=== PATIENT | female | born 1945 | race Two or more races ===

== ENCOUNTER 2020-08-14 07:00 | Inpatient (IN) | payer OTHER ==
[~2020-08-14] VITALS: Ht 162.6 cm; Wt 68.9 kg
[2020-08-14] MEDS ORDERED: SINGULAIR10 MG PO (09:09)
[2020-08-14] MEDS ORDERED: OMEPRAZO PO (09:11)
[2020-08-14] MEDS ORDERED: ADVIL200 M1 PO (09:13)
[2020-08-20] MEDS ORDERED: GABAPENTIN100 M2 (11:38)
[2020-08-20] MEDS ORDERED: OMEPRAZOLE MAGN20 MG (11:38)
[2020-08-20] MEDS ORDERED: CELECOXIB200 MG (11:38)
[2020-08-20] MEDS ORDERED: LEVOCETIRIZINE D5 MG (11:38)
[2020-08-20] MEDS ORDERED: OMEPRAZOLE20 MG (11:38)
[2020-08-20] MEDS ORDERED: BREO ELLIPTA 21 EACH (11:38)
[2020-08-20] MEDS ORDERED: LEVALBUTER1.25 MG/3 (11:39)
[2020-08-20] MEDS ORDERED: DYMISTA NASAL S23 GM (11:39)
[2020-08-21] MEDS ORDERED: Tylenol #3 PO (09:12)
== END 2020-08-21 11:08 | disposition home or self-care (01) | DRG 743 ==
LOC: O/R 08-20 06:00 → OB/GYN 08-20 06:00
PROVIDERS: ADMIT Obstetrics & Gynecology; ATTEND Obstetrics & Gynecology
PROC: 0UT27ZZ Resection of Bilateral Ovaries, Via Natural or Artificial Opening (ICD-10-PCS; 2020-08-20)
PROC: 0UT77ZZ Resection of Bilateral Fallopian Tubes, Via Natural or Artificial Opening (ICD-10-PCS; 2020-08-20)
PROC: 0TJB8ZZ Inspection of Bladder, Via Natural or Artificial Opening Endoscopic (ICD-10-PCS; 2020-08-20)
PROC: 0UT97ZZ Resection of Uterus, Via Natural or Artificial Opening (ICD-10-PCS; principal; 2020-08-20 07:00)
DX: N80.0 Endometriosis of uterus (principal); N94.89 Other specified conditions associated with female genital organs and menstrual cycle; N83.299 Other ovarian cyst, unspecified side; D26.1 Other benign neoplasm of corpus uteri; N81.11 Cystocele, midline

== ENCOUNTER 2023-04-06 10:37 | Outpatient (CLI) | payer OTHER ==
[~2023-04-06 10:37] MED LIST: ADVIL200 M1 PO; BREO ELLIPTA 21 EACH; CELECOXIB200 MG; DYMISTA NASAL S23 GM; GABAPENTIN100 M2; LEVALBUTER1.25 MG/3; LEVOCETIRIZINE D5 MG; OMEPRAZO PO; OMEPRAZOLE MAGN20 MG; OMEPRAZOLE20 MG; SINGULAIR10 MG PO; Tylenol #3 PO
== END 2023-04-06 10:46 | disposition home or self-care (01) ==
LOC: NUCLEAR 10:37
PROVIDERS: ATTEND Internal Medicine Sports Medicine
DX: C73 Malignant neoplasm of thyroid gland (principal); E89.0 Postprocedural hypothyroidism
CPT/HCPCS: 79005; A9517

== ENCOUNTER 2023-04-10 12:09 | Outpatient (CLI) | payer OTHER | END 2023-04-10 12:12 | disposition home or self-care (01) | LOC: NUCLEAR 12:09 | PROVIDERS: ATTEND Internal Medicine Sports Medicine | DX: C73 Malignant neoplasm of thyroid gland (principal); E89.0 Postprocedural hypothyroidism | CPT/HCPCS: 78015; A9531 ==

== ENCOUNTER 2024-03-04 07:34 | Day surgery (SDC) | payer OTHER ==
[2024-03-04] MEDS ORDERED: DIPHENHYDRAMINE HCL 50 MG/ML VIAL 1ML IV ONE (13:15)
[2024-03-04] MEDS ORDERED: MIDAZOLAM HCL 2 MG/2 ML VIAL IV ONE (13:15)
[2024-03-04] MEDS ORDERED: ONDANSETRON HCL 2 MG/ML VIAL IV ONE (13:15)
[2024-03-04] MEDS ORDERED: fentaNYL CITRATE 50 MCG/ML AMPUL IV PUSH ONE (13:15)
== END 2024-03-04 13:30 | disposition home or self-care (01) ==
LOC: AMB-ENDOS 07:34 → CIR.AMB 13:45
PROVIDERS: ATTEND Colon & Rectal Surgery
DX: D12.2 Benign neoplasm of ascending colon (principal); D12.3 Benign neoplasm of transverse colon; K63.5 Polyp of colon; K57.30 Diverticulosis of large intestine without perforation or abscess without bleeding

== ENCOUNTER 2024-03-07 07:19 | Outpatient (CLI) | payer OTHER ==
[2024-03-07 08:02] LABS: PH,URINE 5.5 (5.0-8.0); URINE APPEARANCE Cloudy; URINE BILIRRUBIN Negative (NEGATIVE); URINE BLOOD Negative; URINE COLOR Dark Yellow; URINE EPITHELIAL CELLS 14.8 uL (0.0-38.8); URINE GLUCOSE Negative (NEGATIVE); URINE KETONE 15 (NEGATIVE); URINE LEUKOCYTE Trace; URINE NITRATE Negative; URINE PROTEIN Negative (NEGATIVE); URINE RBC 16.3 uL (0.0-20.8); URINE WBC 9.7 uL (0.0-23.2)
[2024-03-07 08:04] LABS: HEMATOCRIT 36.1 % (36.0-45.00); HEMOGLOBIN 11.9 g/dL (12.0-15.00); MEAN CELL VOLUME 85.7 fL (80.00-100.00); MEAN CORPUSCULAR HEMOGLOBIN 28.3 pg (27.00-32.0); MEAN CORPUSCULAR HGB CONC 33.1 g/dl (32.0-36.0); PLATELET COUNT 308 K/uL (150-450); RED BLOOD COUNT 4.21 M/uL (4.00-6.00); RED CELL DISTRIBUTION WIDTH 15.8 % (11.5-14.5)
[2024-03-07 08:04] LABS: URINE BACTERIA 2.5 uL (0.0-1933)
[2024-03-07 08:45] LABS: INR 1.01; PARTIAL THROMBOPLASTIN TIME 27.9 SECONDS (22.0-34.0)
[2024-03-07 09:01] LABS: ALBUMIN 3.6 gm/dL (3.4-5.0); BILIRUBIN TOTAL 0.58 mg/dL (0.3-1.2); CALCIUM 8.5 mg/dL (8.5-10.1); CREATININE SERUM 0.56 mg/dL (0.55-1.02); GFR 104.43; GLOBULINA 3.4 G/DL (2.4-3.5); POTASSIUM 5.06 mEq/L (3.5-5.1); TSH 1.14 uIU/mL (0.358-3.74)
== END 2024-03-07 07:39 | disposition home or self-care (01) ==
LOC: LAB 07:19
PROVIDERS: ATTEND Colon & Rectal Surgery
DX: K59.00 Constipation, unspecified (principal); N39.0 Urinary tract infection, site not specified; K62.5 Hemorrhage of anus and rectum; D59.8 Other acquired hemolytic anemias; Z11.59 Encounter for screening for other viral diseases; Z20.828 Contact with and (suspected) exposure to other viral communicable diseases; D68.9 Coagulation defect, unspecified; R05.1 Acute cough; R50.9 Fever, unspecified; K63.5 Polyp of colon

== ENCOUNTER 2024-03-08 08:52 | Inpatient (IN) | payer OTHER ==
[2024-03-07 09:46] LABS: RH POSITIVE
[~2024-03-08] VITALS: Ht 152.4 cm; Wt 67.1 kg
[2024-03-08] MEDS ORDERED: PIPERACILLIN/TAZOBACTAM SODIUM 3.375 GM VIAL IV ONE (14:15)
[2024-03-08] MEDS ORDERED: MORPHINE SULFATE 4 MG/ML VIAL IV PRN (16:15)
[2024-03-08] MEDS ORDERED: ONDANSETRON HCL 2 MG/ML VIAL IV PRN (16:15)
[2024-03-08] MEDS ORDERED: RINGERS SOLUTION,LACTATED 1,000 ML IV SCH (16:15)
[2024-03-08] MEDS ORDERED: OxyCODONE HCL 5 MG TABLET (ROXICODONE) PO PRN (16:30)
[2024-03-08] MEDS ORDERED: POLYETHYLENE GLYCOL 3350 17 GM BLIST.PACK PO SCH (17:00)
[2024-03-08] MEDS ORDERED: SIMETHICONE 125 MG CAPSULE PO SCH (17:00)
[2024-03-08] MEDS ORDERED: MORPHINE SULFATE 4 MG/ML VIAL IV ONE (17:05)
[2024-03-08 17:31] LABS: HEMATOCRIT 34.6 % (36.0-45.00); HEMOGLOBIN 11.3 g/dL (12.0-15.00); MEAN CELL VOLUME 85.3 fL (80.00-100.00); MEAN CORPUSCULAR HEMOGLOBIN 27.9 pg (27.00-32.0); MEAN CORPUSCULAR HGB CONC 32.7 g/dl (32.0-36.0); PLATELET COUNT 288 K/uL (150-450); RED BLOOD COUNT 4.06 M/uL (4.00-6.00); RED CELL DISTRIBUTION WIDTH 15.9 % (11.5-14.5)
[2024-03-08 17:55] LABS: ALBUMIN 3.1 gm/dL (3.4-5.0); CALCIUM 8.4 mg/dL (8.5-10.1); CREATININE SERUM 0.49 mg/dL (0.55-1.02); GFR 121.83; MAGNESIUM 1.8 mg/dL (1.8-2.4); PHOSPHOROUS 2.9 mg/dL (2.5-4.9); POTASSIUM 3.84 mEq/L (3.5-5.1)
[2024-03-08] MEDS ORDERED: ACETAMINOPHEN 500 MG GEL..CAP PO SCH (18:00)
[2024-03-08 20:31] VITALS: BP 130/63; O2SAT 95
[2024-03-08] MEDS ORDERED: FAMOTIDINE/PF 20 MG/10 ML SYRINGE IV PUSH SCH (21:00)
[2024-03-09 00:36] VITALS: BP 147/83; O2SAT 98
[2024-03-09] MEDS ORDERED: LEVOTHYROXINE SODIUM 125 MCG TABLET PO SCH (06:00)
[2024-03-09 07:35] LABS: HEMATOCRIT 30.6 % (36.0-45.00); HEMOGLOBIN 10.4 g/dL (12.0-15.00); MEAN CELL VOLUME 84.9 fL (80.00-100.00); MEAN CORPUSCULAR HEMOGLOBIN 28.8 pg (27.00-32.0); MEAN CORPUSCULAR HGB CONC 33.9 g/dl (32.0-36.0); PLATELET COUNT 254 K/uL (150-450); RED BLOOD COUNT 3.61 M/uL (4.00-6.00); RED CELL DISTRIBUTION WIDTH 15.4 % (11.5-14.5)
[2024-03-09 07:57] LABS: ALBUMIN 2.6 gm/dL (3.4-5.0); CALCIUM 7.8 mg/dL (8.5-10.1); CREATININE SERUM 0.58 mg/dL (0.55-1.02); GFR 100.28; MAGNESIUM 1.5 mg/dL (1.8-2.4); PHOSPHOROUS 3.2 mg/dL (2.5-4.9); POTASSIUM 4.18 mEq/L (3.5-5.1)
[2024-03-09 08:00] VITALS: BP 132/60; O2SAT 100
[2024-03-09] MEDS ORDERED: MAGNESIUM CHLORIDE 70 MG TABLET.DR PO SCH (09:00)
[2024-03-09] MEDS ORDERED: LACTOBACILLUS ACIDOPHILUS 1 CAP CAP PO SCH (09:00)
[2024-03-09] MEDS ORDERED: LOSARTAN POTASSIUM 25 MG TABLET PO SCH (09:00)
[2024-03-09] MEDS ORDERED: ATORVASTATIN CALCIUM 40 MG TABLET PO SCH (09:00)
[2024-03-09] MEDS ORDERED: ENOXAPARIN SODIUM 40 MG/0.4 ML SYRINGE SUBCUTANEO SCH (17:00)
[2024-03-09] MEDS ORDERED: MAGNESIUM SULFATE 50% 1,000 MG/2 ML VIAL IM NR (17:00)
[2024-03-09 18:31] VITALS: BP 126/56; O2SAT 95
[2024-03-09 18:32] VITALS: BP 123/59; O2SAT 95
[2024-03-09 23:43] VITALS: BP 148/65; O2SAT 98
[2024-03-10 08:09] LABS: HEMATOCRIT 35.2 % (36.0-45.00); HEMOGLOBIN 11.7 g/dL (12.0-15.00); MEAN CELL VOLUME 86.1 fL (80.00-100.00); MEAN CORPUSCULAR HEMOGLOBIN 28.6 pg (27.00-32.0); MEAN CORPUSCULAR HGB CONC 33.2 g/dl (32.0-36.0); PLATELET COUNT 303 K/uL (150-450); RED BLOOD COUNT 4.09 M/uL (4.00-6.00); RED CELL DISTRIBUTION WIDTH 15.8 % (11.5-14.5)
[2024-03-10 08:29] LABS: ALBUMIN 2.8 gm/dL (3.4-5.0); CALCIUM 8.4 mg/dL (8.5-10.1); CREATININE SERUM 0.52 mg/dL (0.55-1.02); GFR 113.75; MAGNESIUM 2.5 mg/dL (1.8-2.4); PHOSPHOROUS 3.2 mg/dL (2.5-4.9); POTASSIUM 4.34 mEq/L (3.5-5.1)
[2024-03-10 09:36] VITALS: BP 158/71; O2SAT 98
[2024-03-10] MEDS ORDERED: POTASSIUM PHOS,M-BASIC-D-BASIC 15 MM in 0.9 % SODIUM CHLORIDE 250 ML IV NR (11:30)
[2024-03-10] MEDS ORDERED: DEXTROSE 5 %-0.45 % SOD CHLORD 1,000 ML IV SCH (11:30)
[2024-03-10] MEDS ORDERED: ENALAPRILAT DIHYDRATE 1.25 MG/ML VIAL IV PRN (11:45)
[2024-03-10] MEDS ORDERED: BISMUTH SUBSALICYLATE 262 MG/15 ML BLIST.PACK PO SCH (13:00)
[2024-03-10] MEDS ORDERED: NAPH,MB-DB/K PH,MBDB 1 PKT PACKET PO SCH (13:00)
[2024-03-10 16:01] LABS: HEMATOCRIT 36.9 % (36.0-45.00); MEAN CORPUSCULAR HGB CONC 32.6 g/dl (32.0-36.0); PLATELET COUNT 340 K/uL (150-450); RED CELL DISTRIBUTION WIDTH 15.7 % (11.5-14.5)
[2024-03-10 16:02] LABS: MEAN CORPUSCULAR HEMOGLOBIN 27.9 pg (27.00-32.0)
[2024-03-10 16:26] VITALS: BP 132/60; O2SAT 98
[2024-03-10] MEDS ORDERED: FAMOtidine 20 MG TABLET PO SCH (17:00)
[2024-03-10] MEDS ORDERED: FAMOTIDINE/PF 20 MG/2 ML VIAL IV SCH (17:00)
[2024-03-10 23:50] VITALS: BP 112/60; O2SAT 98
[2024-03-11 05:04] LABS: HEMATOCRIT 32.8 % (36.0-45.00); HEMOGLOBIN 10.8 g/dL (12.0-15.00); MEAN CELL VOLUME 86.1 fL (80.00-100.00); MEAN CORPUSCULAR HEMOGLOBIN 28.5 pg (27.00-32.0); MEAN CORPUSCULAR HGB CONC 33.1 g/dl (32.0-36.0); PLATELET COUNT 270 K/uL (150-450); RED BLOOD COUNT 3.81 M/uL (4.00-6.00); RED CELL DISTRIBUTION WIDTH 15.6 % (11.5-14.5)
[2024-03-11 08:26] VITALS: BP 135/59; O2SAT 96
[2024-03-11] MEDS ORDERED: SUCRALFATE 1 G TABLET PO SCH (09:44)
[2024-03-11] MEDS ORDERED: PANTOPRAZOLE SODIUM 40 MG/VIAL VIAL IV STA (12:36)
[2024-03-11] MEDS ORDERED: PIPERACILLIN/TAZOBACTAM SODIUM 3.375 GM VIAL IV STA (12:36)
[2024-03-11] MEDS ORDERED: LOPERAMIDE HCL 2 MG CAPSULE PO STA (12:38)
[2024-03-11 15:00] LABS: ALBUMIN 2.6 gm/dL (3.4-5.0); CALCIUM 7.7 mg/dL (8.5-10.1); CREATININE SERUM 0.64 mg/dL (0.55-1.02); GFR 89.51; PHOSPHOROUS 2.7 mg/dL (2.5-4.9); POTASSIUM 3.42 mEq/L (3.5-5.1)
[2024-03-11 16:07] VITALS: BP 134/61
[2024-03-11] MEDS ORDERED: FAMOTIDINE/PF 20 MG/2 ML VIAL IV SCH (17:00)
[2024-03-11] MEDS ORDERED: PIPERACILLIN/TAZOBACTAM SODIUM 3.375 GM VIAL IV SCH (18:00)
[2024-03-12] VITALS: BP 157/69; O2SAT 97
[2024-03-12 06:12] LABS: HEMATOCRIT 32.7 % (36.0-45.00); HEMOGLOBIN 10.9 g/dL (12.0-15.00); MEAN CELL VOLUME 85.8 fL (80.00-100.00); MEAN CORPUSCULAR HEMOGLOBIN 28.8 pg (27.00-32.0); MEAN CORPUSCULAR HGB CONC 33.5 g/dl (32.0-36.0); PLATELET COUNT 257 K/uL (150-450); RED BLOOD COUNT 3.81 M/uL (4.00-6.00); RED CELL DISTRIBUTION WIDTH 15.2 % (11.5-14.5)
[2024-03-12 06:40] LABS: ALBUMIN 2.3 gm/dL (3.4-5.0); CALCIUM 7.6 mg/dL (8.5-10.1); CREATININE SERUM 0.47 mg/dL (0.55-1.02); GFR 127.83; MAGNESIUM 2.3 mg/dL (1.8-2.4); PHOSPHOROUS 2.2 mg/dL (2.5-4.9); POTASSIUM 3.41 mEq/L (3.5-5.1)
[2024-03-12 07:43] VITALS: BP 133/60; O2SAT 97
[2024-03-12] MEDS ORDERED: NAPH,MB-DB/K PH,MBDB 1 PKT PACKET PO SCH (09:00)
[2024-03-12] MEDS ORDERED: LOPERAMIDE HCL 2 MG CAPSULE PO SCH (09:00)
[2024-03-12] MEDS ORDERED: PANTOPRAZOLE SODIUM 40 MG/VIAL VIAL IV SCH (09:00)
[2024-03-12] MEDS ORDERED: POTASSIUM PHOS,M-BASIC-D-BASIC 18 MM in 0.9 % SODIUM CHLORIDE 500 ML IV ONE (11:00)
[2024-03-12 15:40] VITALS: BP 139/84; O2SAT 98
[2024-03-13 00:43] VITALS: BP 133/79; O2SAT 97
[2024-03-13 07:11] LABS: ALBUMIN 2.1 gm/dL (3.4-5.0); CALCIUM 6.9 mg/dL (8.5-10.1); CREATININE SERUM 0.48 mg/dL (0.55-1.02); GFR 124.76; PHOSPHOROUS 2.4 mg/dL (2.5-4.9); POTASSIUM 3.89 mEq/L (3.5-5.1)
[2024-03-13 07:24] LABS: HEMATOCRIT 29.3 % (36.0-45.00); HEMOGLOBIN 9.8 g/dL (12.0-15.00); MEAN CELL VOLUME 84.2 fL (80.00-100.00); MEAN CORPUSCULAR HEMOGLOBIN 28.1 pg (27.00-32.0); MEAN CORPUSCULAR HGB CONC 33.3 g/dl (32.0-36.0); PLATELET COUNT 272 K/uL (150-450); RED BLOOD COUNT 3.48 M/uL (4.00-6.00); RED CELL DISTRIBUTION WIDTH 15.5 % (11.5-14.5)
[2024-03-13 08:10] VITALS: BP 148/80; O2SAT 96
[2024-03-13] MEDS ORDERED: NAPH,MB-DB/K PH,MBDB 1 PKT PACKET PO SCH (09:00)
[2024-03-13] MEDS ORDERED: CHOLESTYRAMINE/ASPARTAME LIGHT 4 G/PKT PACKET PO SCH (10:07)
[2024-03-13] MEDS ORDERED: POTASSIUM PHOS,M-BASIC-D-BASIC 15 MM in 0.9 % SODIUM CHLORIDE 250 ML IV ONE (11:00)
[2024-03-13] MEDS ORDERED: LEVALBUTEROL HCL 0.63 MG/3 ML SOLUTION IH SCH (12:00)
[2024-03-13] MEDS ORDERED: IPRATROPIUM BROMIDE 0.5 MG/2.5 ML AMPUL.NEB IH SCH (12:00)
[2024-03-13] MEDS ORDERED: SODIUM CHLORIDE 50 ML SPRAY NASAL SCH (13:00)
[2024-03-13 15:35] VITALS: BP 122/59; O2SAT 95
[2024-03-13] MEDS ORDERED: LOPERAMIDE HCL 2 MG CAPSULE PO SCH (17:00)
[2024-03-13] MEDS ORDERED: MELATONIN 5 MG TABLET PO SCH (21:00)
[2024-03-14 00:05] VITALS: BP 134/56; O2SAT 97
[2024-03-14 07:11] LABS: ALBUMIN 2.2 gm/dL (3.4-5.0); BILIRUBIN TOTAL 0.25 mg/dL (0.3-1.2); CALCIUM 7.2 mg/dL (8.5-10.1); CREATININE SERUM 0.39 mg/dL (0.55-1.02); GFR 158.54; GLOBULINA 2.9 G/DL (2.4-3.5); MAGNESIUM 1.9 mg/dL (1.8-2.4); PHOSPHOROUS 2.2 mg/dL (2.5-4.9); POTASSIUM 3.41 mEq/L (3.5-5.1); TOTAL PROTEIN 5.1 gm/dL (6.4-8.2)
[2024-03-14 07:15] LABS: HEMATOCRIT 29.8 % (36.0-45.00); HEMOGLOBIN 10.1 g/dL (12.0-15.00); MEAN CELL VOLUME 85.1 fL (80.00-100.00); MEAN CORPUSCULAR HEMOGLOBIN 28.8 pg (27.00-32.0); MEAN CORPUSCULAR HGB CONC 33.9 g/dl (32.0-36.0); PLATELET COUNT 302 K/uL (150-450); RED BLOOD COUNT 3.51 M/uL (4.00-6.00); RED CELL DISTRIBUTION WIDTH 15.3 % (11.5-14.5)
[2024-03-14 08:01] VITALS: BP 134/84; O2SAT 95
[2024-03-14] MEDS ORDERED: MAGNESIUM SULFATE IN WATER 2 GM/50 ML PIGGYBAG IV NR (08:15)
[2024-03-14] MEDS ORDERED: POTASSIUM PHOS,M-BASIC-D-BASIC 15 MM in 0.9 % SODIUM CHLORIDE 250 ML IV NR (09:19)
[2024-03-14 16:00] VITALS: BP 140/63; O2SAT 100
[2024-03-15] VITALS: BP 144/57; O2SAT 97
[2024-03-15 06:30] LABS: HEMATOCRIT 30.3 % (36.0-45.00); HEMOGLOBIN 10.2 g/dL (12.0-15.00); MEAN CELL VOLUME 84.9 fL (80.00-100.00); MEAN CORPUSCULAR HEMOGLOBIN 28.5 pg (27.00-32.0); MEAN CORPUSCULAR HGB CONC 33.6 g/dl (32.0-36.0); PLATELET COUNT 344 K/uL (150-450); RED BLOOD COUNT 3.56 M/uL (4.00-6.00); RED CELL DISTRIBUTION WIDTH 15.3 % (11.5-14.5)
[2024-03-15 06:58] LABS: ALBUMIN 2.3 gm/dL (3.4-5.0); BILIRUBIN TOTAL 0.28 mg/dL (0.3-1.2); CALCIUM 7.6 mg/dL (8.5-10.1); CREATININE SERUM 0.41 mg/dL (0.55-1.02); GFR 149.65; MAGNESIUM 2.3 mg/dL (1.8-2.4); POTASSIUM 3.75 mEq/L (3.5-5.1); TOTAL PROTEIN 5.3 gm/dL (6.4-8.2)
[2024-03-15 08:00] VITALS: BP 160/77; O2SAT 97
== END 2024-03-15 16:06 | disposition home or self-care (01) | DRG 330 ==
LOC: CIR.AMB 08:52 → SURG 17:00 → O/R 17:00 → SURG 17:01
PROVIDERS: Internal Medicine; ADMIT Colon & Rectal Surgery; ATTEND Colon & Rectal Surgery
PROC: 07BB4ZZ Excision of Mesenteric Lymphatic, Percutaneous Endoscopic Approach (ICD-10-PCS; 2024-03-08)
PROC: 0DTF4ZZ Resection of Right Large Intestine, Percutaneous Endoscopic Approach (ICD-10-PCS; principal; 2024-03-08 07:00)
DX: C18.0 Malignant neoplasm of cecum (principal); J45.901 Unspecified asthma with (acute) exacerbation; K92.1 Melena; K91.2 Postsurgical malabsorption, not elsewhere classified; K63.5 Polyp of colon; R59.0 Localized enlarged lymph nodes; I10 Essential (primary) hypertension; D64.9 Anemia, unspecified; E87.6 Hypokalemia

== ENCOUNTER 2024-05-17 10:17 | Outpatient (CLI) | payer OTHER | END 2024-05-17 10:18 | disposition home or self-care (01) | LOC: NUCLEAR 10:17 | PROVIDERS: ATTEND Internal Medicine Sports Medicine | DX: C73 Malignant neoplasm of thyroid gland (principal) | CPT/HCPCS: 78018; 78020; A9528 ==

== ENCOUNTER 2025-01-22 07:48 | Outpatient (CLI) | payer OTHER | END 2025-01-22 07:56 | disposition home or self-care (01) | LOC: RX STUDY 07:48 | PROVIDERS: ATTEND Internal Medicine Gastroenterology | DX: R10.30 Lower abdominal pain, unspecified (principal); K57.30 Diverticulosis of large intestine without perforation or abscess without bleeding; K31.89 Other diseases of stomach and duodenum; K29.70 Gastritis, unspecified, without bleeding; E73.9 Lactose intolerance, unspecified; K86.9 Disease of pancreas, unspecified; K76.9 Liver disease, unspecified; D50.9 Iron deficiency anemia, unspecified ==

== ENCOUNTER 2025-05-23 16:40 | Emergency (ER) | payer OTHER ==
[~2025-05-23] VITALS: Ht 160 cm; Wt 65.3 kg
[2025-05-23] MEDS ORDERED: LACTOBACILLUS ACIDOPHILUS 1 CAP CAP PO ONE ×2 (19:00→21:27)
[2025-05-23] MEDS ORDERED: ONDANSETRON HCL 2 MG/ML VIAL IV ONE (19:00)
[2025-05-23] MEDS ORDERED: FAMOTIDINE/PF 20 MG/2 ML VIAL IV ONE (19:00)
[2025-05-23] MEDS ORDERED: 0.9 % SODIUM CHLORIDE 500 ML IV ONE (19:00)
[2025-05-23] MEDS ORDERED: ONDANSETRON HCL 2 MG/ML VIAL ONE (21:26)
[2025-05-23] MEDS ORDERED: FAMOTIDINE/PF 20 MG/2 ML VIAL ONE (21:27)
[2025-05-23 21:58] LABS: BASO % 0.4 % (0.1-1.2); EOS # 0.05 (0.04-0.54); EOS % 0.3 % (0.7-7.0); LYMPH # 4.21 (1.18-3.74); LYMPH % 27.1 % (19.3-53.1); MEAN PLATELET VOLUME 9.20 fl (9.4-12.4); MONO # 1.42 (0.24-0.82); MONO % 9.1 % (4.7-12.5); NEUT # 9.46 (1.56-6.13); NEUT % 61.0 % (34.0-71.1); RED CELL DISTRIBUTION WIDTH 14.9 % (11.6-14.4)
[2025-05-23 22:08] LABS: INR 0.99
[2025-05-23 22:12] LABS: ALT/SGPT 26.0 U/L (12-78); AST/SGOT 15.0 U/L (15-37); BILIRUBIN TOTAL 0.25 mg/dL (0.3-1.2); BUN CREA RATIO 32.0 (7.0-25.0); CREATININE SERUM 0.79 mg/dL (0.55-1.02); GFR 69.85; GLOBULINA 3.7 G/DL (2.4-3.5); OSMOLALITY SERUM 298.0 MOSM/KG (275-295)
[2025-05-23 22:13] LABS: GLUCOSE FASTING 256.0 mg/dL (65-100)
[2025-05-23 23:20] LABS: COVID-19 AG NEGATIVE (NEGATIVE)
[2025-05-23 23:28] LABS: URINE APPEARANCE Clear; URINE BILIRRUBIN Negative (NEGATIVE); URINE BLOOD Negative; URINE COLOR Yellow; URINE GLUCOSE Negative (NEGATIVE); URINE KETONE Negative (NEGATIVE); URINE LEUKOCYTE Negative; URINE NITRATE Negative; URINE PROTEIN Negative (NEGATIVE); URINE UROBILINOGEN 0.2 E.U./dl
[2025-05-23 23:34] LABS: URINE BACTERIA 22.8 uL (0.0-1933); URINE EPITHELIAL CELLS 17.3 uL (0.0-38.8); URINE RBC 2.4 uL (0.0-20.8); URINE WBC 9.6 uL (0.0-23.2)
[2025-05-23 23:42] LABS: URINE CAST 0.70 uL (0.0-1.40)
[2025-05-24] MEDS ORDERED: LEVSIN0.125 MG PO (00:09)
[2025-05-24] MEDS ORDERED: PEPCID20 MG PO (00:09)
[2025-05-24] MEDS ORDERED: CIPRO500 MG PO (00:09)
[2025-05-24] MEDS ORDERED: INTESTINEX680 M1 PO (00:09)
[2025-05-24] MEDS ORDERED: METRONIDAZOLE500 MG PO (00:09)
== END 2025-05-24 00:28 | disposition home or self-care (01) ==
LOC: ER 16:41
PROVIDERS: General Practice
DX: K52.89 Other specified noninfective gastroenteritis and colitis (principal); E11.65 Type 2 diabetes mellitus with hyperglycemia; Z79.84 Long term (current) use of oral hypoglycemic drugs; Z20.822 Contact with and (suspected) exposure to COVID-19; I10 Essential (primary) hypertension; Z86.73 Personal history of transient ischemic attack (TIA), and cerebral infarction without residual deficits; Z93.8 Other artificial opening status
CPT/HCPCS: 36415; 74177; 96365; 96366; 99284; J2405; J3490; Q9965